=== PATIENT | female | born 1945 ===

== ENCOUNTER 2016-12-29 18:24 | Emergency (ER) | payer MEDICARE ==
[2016-12-29 18:25] VITALS: BMI 27.1
[2016-12-29 19:08] LABS: URINE BILIRUBIN NEGATIVE (NEGATIVE); URINE BLOOD NEGATIVE (NEGATIVE); URINE COLOR Colorless (YELLOW); URINE GLUCOSE (UA) NORMAL (Normal); URINE KETONE NEGATIVE (NEGATIVE); URINE LEUKOCYTE ESTERASE TRACE Leu/uL (Negative); URINE PROTEIN NEGATIVE (NEGATIVE); URINE UROBILINOGEN NORMAL mg/dL (0.2-1.0); WBC URINE 1 /hpf (0-5)
--- NOTE | 2016-12-29 19:30 | C.PDOC ---
History Of Present Illness 71 y/o female presents to the ED with complains of suprapubic pain x1 week with associated intermittent chills. Pt denies dysuria, hematuria, diarrhea, constipation, nausea, vomiting, hematochezia, fever, headache, dizziness, SOB, chest pain or any other complaints. Time Seen by Provider: 12/29/16 18:33 Chief Complaint (Nursing): Abdominal Pain History Per: Patient History/Exam Limitations: no limitations Onset/Duration Of Symptoms: Days Current Symptoms Are (Timing): Still Present Severity: Mild Location Of Pain/Discomfort: Suprapubic Radiation Of Pain To:: None Quality Of Discomfort: "Pain" Associated Symptoms: Chills. denies: Fever, Nausea, Vomiting, Diarrhea, Chest Pain, Constipation, Urinary Symptoms Exacerbating Factors: None Alleviating Factors: None Recent travel outside of the [place]: No Past Medical History Reviewed: Historical Data, Nursing Documentation, Vital Signs Vital Signs: Last Vital Signs Temp 98.1 F 12/29/16 18:40 Pulse 61 12/29/16 18:40 Resp 20 12/29/16 18:40 BP 124/80 12/29/16 18:40 Pulse Ox 100 12/29/16 20:28 - Medical History PMH: HTN Family History: States: Unknown Family Hx - Social History Hx Tobacco Use: No Hx Alcohol Use: No Hx Substance Use: No - Immunization History Hx Tetanus Toxoid Vaccination: No Hx Influenza Vaccination: No Hx Pneumococcal Vaccination: No Review Of Systems Except As Marked, All Systems Reviewed And Found Negative. Constitutional: Positive for: Chills. Negative for: Fever Cardiovascular: Negative for: Chest Pain Respiratory: Negative for: Shortness of Breath Gastrointestinal: Positive for: Abdominal Pain. Negative for: Nausea, Vomiting , Diarrhea, Constipation, Hematochezia Genitourinary: Negative for: Dysuria, Hematuria Neurological: Negative for: Headache, Dizziness Physical Exam - Physical Exam Appears: Non-toxic, No Acute Distress Skin: Warm, Dry, No Rash Head: Atraumatic, Normacephalic Neck: Normal ROM, Supple Chest: Symmetrical Cardiovascular: Rhythm Regular, No Murmur Respiratory: Normal Breath Sounds, No Rales, No Rhonchi, No Wheezing Gastrointestinal/Abdominal: Soft, Tenderness (mild suprapubic), No Guarding, No Rebound Extremity: Normal ROM, No Pedal Edema Extremity: Bilateral: Atraumatic Neurological/Psych: Oriented x3 ED Course And Treatment - Laboratory Results Result Diagrams: 12/29/16 19:33 12/29/16 19:33 O2 Sat by Pulse Oximetry: 100 (on room air) Pulse Ox Interpretation: Normal Progress Note: Plan: CT abdome, labs, UA, IV fluids. 8:25- Patient signed out against medical advice and refused CT scan. Disposition Counseled Patient/Family Regarding: Diagnosis, Need For Followup, Rx Given - Disposition Referrals: Aye Robb FNP [Advanced Practice Nurse] - Disposition: AGAINST MEDICAL ADVICE Disposition Time: 20:30 Condition: STABLE Additional Instructions: YOU ARE SIGNING OUT AGAINST MY MEDICAL ADVICE USE PAIN MEDICATION NEEDED RETURN TO EMERGENCY ROOM IF SYMPTOMS WORSEN EST FIRMANDO CONTRA PA CONSEJO JUAREZ USE EL MEDICAMENTO DEL DOLOR JONY SEA NECESARIO DEVUELVA A LA [place] DE EMERGENCIA SI LOS SNTOMAS EMPEORARAN Instructions: Pelvic Pain (ED) Forms: (AMA) Informed Refusal Print Language: GUATEMALAN - Clinical Impression Clinical Impression: Left against medical advice, Pelvic pain - Scribe Statement The provider has reviewed the documentation as recorded by the Marisolibemma Mcallister Provider Attestation: All medical record entries made by the Scribe were at my direction and personally dictated by me. I have reviewed the chart and agree that the record accurately reflects my personal performance of the history, physical exam, medical decision making, and the department course for this patient. I have also personally directed, reviewed, and agree with the discharge instructions and disposition.
[2016-12-29 19:49] LABS: BASO # 0.1 K/uL (0.0-0.2); EOS # 0.8 K/uL (0.0-0.7); EOS % 12.8 % (0.0-4.0); HEMATOCRIT 39.9 % (34.0-47.0); LYMPH # 2.6 K/uL (1.0-4.3); LYMPH % 41.1 % (20.0-40.0); MEAN CELL VOLUME 81.5 fL (81.0-99.0); MEAN CORPUSCULAR HGB CONC 31.9 g/dL (33.0-37.0); MEAN PLATELET VOLUME 8.1 fL (7.2-11.7); MONO # 0.7 K/uL (0.0-0.8); MONO % 11.6 % (0.0-10.0); RED CELL DISTRIBUTION WIDTH 13.5 % (11.5-14.5); WHITE BLOOD COUNT 6.3 K/uL (4.8-10.8)
[2016-12-29 19:56] LABS: CHLORIDE 97 mmol/L (98-107); POTASSIUM 4.3 mmol/L (3.6-5.2); SODIUM 141 mmol/L (132-148)
[2016-12-29 19:58] LABS: ALB/GLOB RATIO 1.2 (1.0-2.1); ALKALINE PHOSPHATASE 119 U/L (38-126); AST/SGOT 26 U/L (14-36); BILIRUBIN,TOTAL 0.3 mg/dL (0.2-1.3); CARBON DIOXIDE 27 mmol/L (22-30); GFR AFRICAN-AMERICAN > 60; TOTAL PROTEIN 7.8 g/dL (6.3-8.3)
[2016-12-29 19:59] LABS: ALT/SGPT 21 U/L (9-52); BLOOD UREA NITROGEN 16 mg/dL (7-17); CALCIUM 8.7 mg/dl (8.6-10.4); GLUCOSE,RANDOM 92 mg/dL (65-105)
[2016-12-29] MEDS ORDERED: Iohexol 300 100 ML IJ ONE (20:12)
[2016-12-29 20:39] VITALS: BP 154/76; PULSE 56; RESP 16; TEMP 97.6; O2SAT 98
== END 2016-12-29 20:42 | disposition left against medical advice (07) ==
LOC: C.ER 18:24
DX: R10.2 Pelvic and perineal pain (principal)
CPT/HCPCS: 80053; 81001; 85025; 87086; 99285; Q9967

== ENCOUNTER → 2017-11-07 | Emergency (ER) | payer MEDICARE ==
[2017-11-07 01:12] VITALS: BMI 27.1
[2017-11-07 01:40] VITALS: BP 164/73; PULSE 80; RESP 20; TEMP 98; O2SAT 100
== END | disposition left against medical advice (07) ==
LOC: C.ER 01:12
DX: Z02.89 Encounter for other administrative examinations (principal); M25.512 Pain in left shoulder

== ENCOUNTER 2018-04-19 19:40 | Emergency (ER) | payer MEDICARE ==
[2018-04-19 19:40] VITALS: BMI 27.1
[2018-04-19 19:46] VITALS: BP 159/80; PULSE 70; RESP 16; TEMP 98; O2SAT 96
--- NOTE | 2018-04-19 20:10 | C.PDOC ---
History Of Present Illness 72yo female with PMH osteoporosis and back pain presents to ER with complaints of bilateral knee pain intermittently for the past month. Patient states her knees do not hurt when touching them but with certain movements. She notes she has been taking Advil with transient relief of symptoms. Notes h/o XR that were "normal". She denies any trauma, swelling, fever, rash, difficulty breathing, calf pain or swelling, or chest pain. Time Seen by Provider: 04/19/18 19:54 Chief Complaint (Nursing): Back Pain History Per: Patient History/Exam Limitations: no limitations Onset/Duration Of Symptoms: Intermittent Episodes, Persistent Current Symptoms Are (Timing): Still Present Quality Of Discomfort: "Pain" Previous Symptoms: Chronic Pain Past Medical History Reviewed: Historical Data, Nursing Documentation, Vital Signs Vital Signs: Last Vital Signs Temp 98 F 04/19/18 19:43 Pulse 70 04/19/18 19:43 Resp 16 04/19/18 19:43 BP 159/80 H 04/19/18 19:43 Pulse Ox 96 04/19/18 20:49 - Medical History PMH: HTN, Osteoporosis, Chronic Pain Surgical History: No Surg Hx Family History: States: Unknown Family Hx - Social History Hx Tobacco Use: No Hx Alcohol Use: No Hx Substance Use: No - Immunization History Hx Tetanus Toxoid Vaccination: No Hx Influenza Vaccination: No Hx Pneumococcal Vaccination: No Review Of Systems Except As Marked, All Systems Reviewed And Found Negative. Constitutional: Negative for: Fever, Chills Cardiovascular: Negative for: Chest Pain Respiratory: Negative for: Shortness of Breath Musculoskeletal: Positive for: Other (bilateral knee pain) Neurological: Negative for: Weakness, Numbness Physical Exam - Physical Exam Appears: Non-toxic, No Acute Distress Skin: Normal Color, Warm, Dry Head: Atraumatic, Normacephalic Eye(s): bilateral: Normal Inspection, EOMI Nose: Normal Oral Mucosa: Moist Neck: Normal ROM, Supple Chest: Symmetrical Cardiovascular: Rhythm Regular Respiratory: Normal Breath Sounds Back: Normal Inspection Extremity: Normal ROM, No Tenderness, No Pedal Edema, No Calf Tenderness, No Deformity, No Swelling Extremity: Bilateral: Normal Color And Temperature Neurological/Psych: Oriented x3, Normal Speech, Normal Cognition, Normal Motor, Normal Sensation Gait: Steady (pt jumped onto b/l legs from the chair in no evidence of pain) ED Course And Treatment O2 Sat by Pulse Oximetry: 96 (RA) Pulse Ox Interpretation: Normal Progress Note: Patient offered XR of her knees which she refused. Patient given instructions to follow up with orthopedist in 1-2 days. Disposition - Disposition Referrals: Deshawn Bird Jr., MD [Medical Doctor] - Bhargavi Syed MD [Staff Provider] - Disposition: HOME/ ROUTINE Disposition Time: 20:10 Condition: STABLE Additional Instructions: Take Advil for the pain. Follow up with the PMD in 1-2 days. Return to ER if symptoms persist or worsen. Prescriptions: Ibuprofen [Motrin] 400 mg PO Q6 PRN #20 tab PRN Reason: Fever Instructions: Osteoarthritis Forms: [email or web address] (Slovenian) Print Language: KOSOVAN - Clinical Impression Clinical Impression: Knee pain, bilateral - PA / [employer] / Resident Statement MD/DO has reviewed & agrees with the documentation as recorded. - Scribe Statement The provider has reviewed the documentation as recorded by the Keanu Moya Provider Attestation: All medical record entries made by the Keanu were at my direction and personally dictated by me. I have reviewed the chart and agree that the record accurately reflects my personal performance of the history, physical exam, medical decision making, and the department course for this patient. I have also personally directed, reviewed, and agree with the discharge instructions and disposition.
== END 2018-04-19 20:30 | disposition home or self-care (01) ==
LOC: C.ER 19:40
DX: M25.561 Pain in right knee (principal); M25.562 Pain in left knee

== ENCOUNTER 2019-02-11 23:29 | Emergency (ER) | payer MEDICARE, MEDICAID ==
[2019-02-11 23:30] VITALS: BMI 27.1
[2019-02-11 23:41] VITALS: O2SAT 98
--- NOTE | 2019-02-12 00:02 | C.PDOC ---
History Of Present Illness Patient presents to the ED c/o abdominal pain and urinary retention. Patient states she last voided at 11:00 today. Patient also c/o constipation, reports her last bowel movement was 3 days ago. Patient denies fever, chills, nausea, vomit, diarrhea, rash. Time Seen by Provider: 02/12/19 00:02 Chief Complaint (Nursing): Abdominal Pain History Per: Patient History/Exam Limitations: no limitations Onset/Duration Of Symptoms: Hrs Current Symptoms Are (Timing): Still Present Pain Scale Rating Of: 4 Location Of Pain/Discomfort: Diffuse, Suprapubic Radiation Of Pain To:: None Quality Of Discomfort: Sharp, Stabbing, "Pain" Associated Symptoms: Constipation, Urinary Symptoms. denies: Nausea, Vomiting, Diarrhea Recent travel outside of the [place]: No Additional History Per: Patient Abnormal Vaginal Bleeding: No Past Medical History Reviewed: Historical Data, Nursing Documentation, Vital Signs Vital Signs: Last Vital Signs Temp 97.9 F 02/11/19 23:35 Pulse 104 H 02/11/19 23:35 Resp 16 02/11/19 23:35 BP 168/91 H 02/11/19 23:35 Pulse Ox 98 02/11/19 23:35 - Medical History PMH: HTN, Osteoporosis, Chronic Pain Surgical History: No Surg Hx Family History: States: Unknown Family Hx - Social History Hx Tobacco Use: No Hx Alcohol Use: No Hx Substance Use: No - Immunization History Hx Tetanus Toxoid Vaccination: No Hx Influenza Vaccination: Yes Hx Pneumococcal Vaccination: Yes Review Of Systems Constitutional: Negative for: Fever, Chills Cardiovascular: Negative for: Chest Pain Respiratory: Negative for: Cough, Shortness of Breath Gastrointestinal: Positive for: Abdominal Pain, Constipation. Negative for: Nausea, Vomiting, Diarrhea Genitourinary: Positive for: Other (retention). Negative for: Dysuria Musculoskeletal: Negative for: Back Pain Neurological: Negative for: Weakness, Numbness, Headache Physical Exam - Physical Exam Appears: Non-toxic, No Acute Distress Skin: Warm, Dry Head: Normacephalic Eye(s): bilateral: Normal Inspection Oral Mucosa: Moist Neck: Supple Chest: Symmetrical Cardiovascular: Rhythm Regular Respiratory: No Rales, No Rhonchi, No Wheezing Gastrointestinal/Abdominal: Bowel Sounds (decreased), Soft, Tenderness (diffuse, suprapubic), No Guarding, No Rebound Rectal: Other (lots of stool in the rectal vault) Back: No CVA Tenderness Extremity: Bilateral: Atraumatic, Normal Color And Temperature, Normal ROM Neurological/Psych: Oriented x3, Normal Speech, Normal Cognition Gait: Steady ED Course And Treatment - Laboratory Results Result Diagrams: 02/12/19 01:19 02/12/19 01:19 O2 Sat by Pulse Oximetry: 98 (ON RA) Pulse Ox Interpretation: Normal - CT Scan/US CT abd/pelvis Other Rad Studies (CT/US): Read By Radiologist, Radiology Report Reviewed CT/US Interpretation: CT SCAN OF THE ABDOMEN AND PELVIS WITH CONTRAST. CLINICAL HISTORY: PATIENT WITH 2 DAYS OF PELVIC PAIN DIFFICULTY URINATING CATHETER IN (Hx). TECHNIQUE: Multiple axial and coronal CT images were obtained through the abdomen and pelvis after administration of intravenous contrast material. COMMENTS: Moderate amount of fecal residue in the rectosigmoid colon. Fecal im paction of the rectosigmoid colon. Fluid-filled distended colon proximal to this level without perforation or pneumatosis coli. Findings are probably secondary to stasis from constipation. Underdistended, catheterized bladder. Scattered simple hepatic cysts the largest measuring 1.2 cm. Mild cardiomegaly. Grade I anterolisthesis of L4 on L5 measuring 3.1 mm. The liver is of uniform attenuation without mass or defect. There is no intra or extrahepatic biliary ductal dilatation. The spleen is normal. The gallbladder is within normal limits. The pancreas is of normal contour and attenuation characteristics. There is no evidence of adrenal mass. Both kidneys demonstrate prompt and equal n ephrograms. The kidneys are normal in size, shape and configuration. There is no evidence of renal or ureteral mass. No renal or ureteral calculi are identified. There is no hydroureter or hydronephrosis. No evidence for appendicitis. There is no bowel wall thickening. No evidence for small or large bowel obstruction. There is no evidence of abdominal ascites or lymphadenopathy. There is no evid ence of intrinsic or extrinsic bladder mass. There is no pelvic ascites or lymphadenopathy. Images of the lung bases show no evidence of pleural or parenchymal mass. There are no pleural effusions. The bony structures are free of lytic or blastic lesions. IMPRESSION: Moderate amount of fecal residue in the rectosigmoid colon. Fecal impaction of the rectosigmoid colon. Fluid- filled distended colon proximal to this level without perforation or pneumatosis coli. Findings are probably secondary to stasis from constipation. Underdistended, catheterized bladder. Scattered simple hepatic cysts the largest measuring 1.2 cm. Mild cardiomegaly. Thank you for your kind referral of this patient. . Electronically signed on Feb 12, 2019 3:34:54 AM EDT by: Linus Sharma M.D., Certified by ABR, MSK, Neuroradiology. Progress Note: PLan: - CT abd/pelvis. - Labs. - IV fluids. - UA. Chaperoned by JANET Hardy placed an 18 spanish thomas and obtained ~900 cc of clear urine with relief. Patient still c/o abdominal pain due to constipation. Attempted manual disimpaction, however pt did not tolerate it. Reevaluation Time: 04:50 Reassessment Condition: Improved Disposition Counseled Patient/Family Regarding: Studies Performed, Diagnosis, Need For Followup, Rx Given - Disposition Referrals: [facility] [Outside] [facility] [Outside] Disposition: HOME/ ROUTINE Disposition Time: 00:02 Condition: FAIR Additional Instructions: Por favor regrese si los sntomas recurren. Prescriptions: Polyethylene Glycol 3350 [Miralax] 17 gm PO DAILY #270 ml Instructions: Urinary Retention (DC), Fecal Impaction (DC), Constipation, Adult (DC) Forms: [employer] (Kyrgyz) Print Language: BULGARIAN - Clinical Impression Clinical Impression: Abdominal pain, Fecal impaction in rectum, Constipation, Urinary retention - Scribe Statement The provider has reviewed the documentation as recorded by the Scribe Stuart Centeno All medical record entries made by the Scribe were at my direction and personally dictated by me. I have reviewed the chart and agree that the record accurately reflects my personal performance of the history, physical exam, medical decision making, and the department course for this patient. I have also personally directed, reviewed, and agree with the discharge instructions and disposition.
[2019-02-12] MEDS ORDERED: Sodium Chloride 0.9% 1,000 ML IV ONE (00:58)
[2019-02-12 01:23] LABS: BASO # 0.1 K/uL (0.0-0.2); BASO % 0.9 % (0.0-2.0); EOS # 0.1 K/uL (0.0-0.7); HEMOGLOBIN 13.1 g/dL (11.0-16.0); LYMPH # 1.3 K/uL (1.0-4.3); LYMPH % 16.5 % (20.0-40.0); MEAN CELL VOLUME 82.6 fL (81.0-99.0); MEAN CORPUSCULAR HEMOGLOBIN 27.1 pg (27.0-31.0); MEAN CORPUSCULAR HGB CONC 32.8 g/dL (33.0-37.0); MEAN PLATELET VOLUME 8.7 fL (7.2-11.7); MONO # 0.5 K/uL (0.0-0.8); NEUT # 5.9 K/uL (1.8-7.0); NEUT % 75.6 % (50.0-75.0); NRBC % 0.1 % (0.0-2.0); RBC 4.84 Mil/uL (3.80-5.20); RED CELL DISTRIBUTION WIDTH 13.2 % (11.5-14.5); WHITE BLOOD COUNT 7.8 K/uL (4.8-10.8)
[2019-02-12 01:34] LABS: ALB/GLOB RATIO 1.5 (1.0-2.1); ALBUMIN 4.4 g/dL (3.5-5.0); ALT/SGPT 15 U/L (9-52); AST/SGOT 24 U/L (14-36); BLOOD UREA NITROGEN 12 mg/dL (7-17); CALCIUM 9.1 mg/dl (8.6-10.4); GFR NON-AFRICAN AMERICAN > 60; LIPASE 44 U/L (23-300)
[2019-02-12] MEDS ORDERED: Sodium Chloride 0.9% 250 ML IV ONE (01:46)
[2019-02-12 02:00] LABS: SQUAMOUS EPITHIAL 1 /hpf (0-5); URINE BILIRUBIN NEGATIVE (NEGATIVE); URINE BLOOD NEGATIVE (NEGATIVE); URINE CLARITY Clear (Clear); URINE COLOR Yellow (YELLOW); URINE GLUCOSE (UA) NORMAL (Normal); URINE LEUKOCYTE ESTERASE NEG Leu/uL (Negative); URINE PROTEIN NEGATIVE (NEGATIVE); URINE UROBILINOGEN NORMAL mg/dL (0.2-1.0)
[2019-02-12] MEDS ORDERED: Iodixanol 320 MG/ML 100 ML BOTTLE IV ONE (02:55)
[2019-02-12] MEDS ORDERED: Magnesium Citrate Oral SOL (300 ml) PO ONE (04:24)
[2019-02-12] MEDS ORDERED: Magnesium Citrate Oral SOL (300 ml) ONE (04:25)
[2019-02-12 05:13] VITALS: BP 129/75; PULSE 90; RESP 20; TEMP 98
--- NOTE | 2019-02-12 08:55 | CT ---
CT abdomen and pelvis HISTORY: Abdominal pain. COMPARISON: None available. TECHNIQUE: Multiple contiguous axial images were performed through the abdomen and pelvis with the use of intravenous contrast. Subsequently, sagittal coronal reformatted images were obtained. This CT exam was performed using one or more of the following dose reduction techniques: Automated exposure control, adjustment of the mA and/or kV according to patient size, and/or use of iterative reconstruction technique. FINDINGS: Scattered atelectasis and consolidation at the lung bases. Trace pericardial thickening. Mild cardiomegaly. 1.3 centimeter low-attenuation lesion seen within the periphery of the left hepatic lobe demonstrating a Hounsfield unit attenuation 21, indeterminate. Additional 7 millimeter low-attenuation lesion seen within the left hepatic lobe more inferiorly, too small to adequately characterize. Additional 9 millimeter low-attenuation lesion seen more inferiorly in the medial left hepatic lobe also too small to adequately characterize. Peripheral 5 millimeter low-attenuation lesion seen within the right hepatic lobe too small to adequately characterize. Gallbladder is preserved. Spleen is preserved. Nodular thickening of the left adrenal gland with a 1.6 centimeter low-attenuation lesion in the left adrenal gland demonstrating a Hounsfield unit attenuation of 43, indeterminate. Pancreas is preserved. Small hiatal hernia. Right kidney: No calculi or hydronephrosis. Left Kidney: No calculi or hydronephrosis. James catheter in an underdistended urinary bladder. Heterogeneous uterus. Severe fecal retention in the colon most prominently noted within the left hemicolon and rectosigmoid region. Given the prominent amount of colonic distension and stool within the rectum, a stercoral colitis cannot be excluded. Severe constipation. Portions of the colon including the transverse colon appear somewhat fluid-filled which may be related to stasis from the constipation. Appendix is within limits. Few shotty para-aortic and inguinal lymph nodes. Atherosclerotic calcification and plaque in the aorta. Few shotty mesenteric lymph nodes. Degenerative changes in the spine. Anterolisthesis of L4 on L5. Impression: 1. Severe fecal retention in the colon most prominently noted within the left hemicolon and rectosigmoid region. Given the prominent amount of colonic distension and stool within the rectum, a stercoral colitis cannot be excluded. Severe constipation. Portions of the colon including the transverse colon appear somewhat fluid-filled which may be related to stasis from the constipation. 2. Indeterminate left adrenal nodule as described above. Correlation with multiphasic contrast enhanced CT or MR may be helpful if clinically indicated. 3. Scattered low-attenuation lesions within the liver as described above. Correlation with multiphasic contrast enhanced CT or MR may be helpful if clinically indicated. 4. Anterolisthesis of L4 on L5. 5. James catheter in the urinary bladder. 6. Trace pericardial thickening. Mild cardiomegaly. A preliminary report was generated at 3:34 a.m. on 02/12/[address] Linus Sharma from [employer]. This case was placed in the PA review folder.
== END 2019-02-12 05:13 | disposition home or self-care (01) ==
LOC: C.ER 23:29
DX: R33.9 Retention of urine, unspecified (principal); K59.00 Constipation, unspecified; R10.9 Unspecified abdominal pain; I10 Essential (primary) hypertension; M81.0 Age-related osteoporosis without current pathological fracture
CPT/HCPCS: 51702; 74177; 80053; 81001; 83690; 85025; 96360; 99285; J7030; Q9967